=== PATIENT | female | born 1940 | race Caucasian/White ===

== ENCOUNTER 2019-06-24 12:53 | Emergency (ER) | payer MEDICARE, OTHER ==
[2019-06-24 13:05] VITALS: BP 149/93
--- NOTE | 2019-06-24 13:14 | UC ---
Hand/Wrist HPI - HPI Summary HPI Summary: 78 yo female presents with RIGHT wrist pain. She tells me that for the last 3-4 days she has noticed a small bump to her right wrist. Last night noticed pain and some swelling to the area. Today she woke up and the area was red and warm with increased pain. She has been taking 400mg ibuprofen with mild relief of pain. Denies injury or wound to the area. No pets at home. No hx of MRSA, DM, or IVDA. Denies fever, chills, numbness, tingling. - History Of Current Complaint Chief Complaint: UCUpperExtremity Stated Complaint: WRIST PAIN Time Seen by Provider: 06/24/19 13:08 Hx Obtained From: Patient Onset/Duration: Gradual Onset Severity Initially: Mild Severity Currently: Moderate Pain Intensity: 6 Pain Scale Used: 0-10 Numeric - Allergies/Home Medications Allergies/Adverse Reactions: Allergies Allergy/AdvReac Type Severity Reaction Status Date / Time Sulfa (Sulfonamide Allergy Hives Verified 06/24/19 13:06 Antibiotics) Home Medications: Home Medications Ibuprofen TAB* [Motrin TAB* 400 MG] 1 tab PO TID 06/24/19 [History Confirmed ] PMH/Surg Hx/FS Hx/Imm Hx - Additional Past Medical History Additional PMH: None - Surgical History Surgical History: Yes Surgery Procedure, Year, and Place: [place], 2012, [facility] [place] [facility] [place] Family History Known Family History: Positive: Hypertension - Social History Occupation: Retired Lives: With Family Alcohol Use: None Substance Use Type: None Smoking Status (MU): Heavy Every Day Tobacco Smoker Type: Cigarettes Amount Used/How Often: PACK A DAY Length of Time of Smoking/Using Tobacco: 53 YEARS Have You Smoked in the Last Year: Yes Review of Systems All Other Systems Reviewed And Are Negative: No Constitutional: Positive: Negative Skin: Positive: Other - Right wrist swelling and redness Respiratory: Positive: Negative Cardiovascular: Positive: Negative Neurovascular: Positive: Negative Musculoskeletal: Positive: Other: - Right wrist pain Neurological: Positive: Negative Psychological: Positive: Negative Physical Exam - Summary Physical Exam Summary: GENERAL: NAD. WDWN. No pain distress. SKIN: See MSK CHEST: No accessory muscle use. Breathing comfortably and in no distress. CV: Pulses intact radial and ulnar. Cap refill <2seconds MSK: RIGHT WRIST: Mild edema about dorsal aspect near radial styloid with ~7mm firm fluctuance underlying the skin just distal to the styloid. There is mild surrounding warmth and erythema. She has mild decreased ROM with flexion due to pain. Business Support Assistant strength intact. No volar edema or erythema. No puncture wounds or abrasions. FROM all digits MCPs, PIPs, and DIPs. NEURO: Alert. Sensations intact hand and all fingers. PSYCH: Age appropriate behavior. Triage Information Reviewed: Yes Vital Signs: Initial Vital Signs Temp 97.3 F 06/24/19 13:03 Pulse 97 06/24/19 13:03 Resp 12 06/24/19 13:03 BP 149/93 06/24/19 13:03 Pulse Ox 99 06/24/19 13:03 Vital Signs Reviewed: Yes Diagnostics - Radiology Wrist XR Radiology Interpretation Completed By: ED Physician Summary of Radiographic Findings: NAD - reviewed with Dr. Lancaster Hand/Wrist Course/Dx - Course Course Of Treatment: Wrist XR wet read negative. Reviewed with Dr. Lancaster. Suspect cellulitis with ?underlying abscess formation. She is afebrile and has good ROM of her wrist without systemic infectious signs/ symptoms. Will place her on keflex and have her f/u with Orthopedics tomorrow for a recheck - Differential Dx/Diagnosis Provider Diagnosis: Cellulitis Discharge ED - Sign-Out/Discharge Documenting (check all that apply): Patient Departure All imaging exams completed and their final reports reviewed: No - Discharge Plan Condition: Stable Disposition: HOME Prescriptions: Cephalexin CAP* [Keflex CAP*] 500 mg PO QID 7 Days #28 cap Patient Education Materials: Cellulitis (ED) Referrals: Bianca Hurst MD [Primary Care Provider] - Jovanny Kellogg MD [Medical Doctor] - 1 Day Additional Instructions: If you develop a fever, shortness of breath, chest pain, new or worsening symptoms - please call your PCP or go to the ED immediately. Your blood pressure was high at todays visit. Please see your primary provider within 4 weeks for recheck and re-evaluation. Rest, ice, and elevate your wrist to decrease redness and swelling Take the antibiotic as prescribed. I strongly recommend that you call Orthopedics in the morning to schedule an appointment for tomorr or Tuesday for a recheck. If they cannot see you tomorrow or Tuesday - please return to the urgent care for a recheck. If you develop a fever, increased pain, decrease range of motion of wrist, or redness extending beyond the purple marking - please go to the ER immediately - Billing Disposition and Condition Condition: STABLE Disposition: Home
--- NOTE | 2019-06-25 08:40 | UC ---
- Progress Note Progress Note: Final x-ray report reviewed. IMPRESSION: NO FRACTURE OF THE WRIST IS NOTED. DEGENERATIVE CHANGES BETWEEN THE SCAPHOID AND TRAPEZIUM WELL THE FIRST CARPAL METACARPAL JOINT. Reading of no fx consistent with provider reading. No change in plan of care. Course/Dx - Diagnoses Provider Diagnoses: Cellulitis Discharge ED - Sign-Out/Discharge Documenting (check all that apply): Patient Departure All imaging exams completed and their final reports reviewed: Yes - Discharge Plan Condition: Stable Disposition: HOME Prescriptions: Cephalexin CAP* [Keflex CAP*] 500 mg PO QID 7 Days #28 cap Patient Education Materials: Cellulitis (ED) Referrals: Jovanny Kellogg MD [Medical Doctor] - 1 Day Bianca Hurst MD [Primary Care Provider] - Additional Instructions: If you develop a fever, shortness of breath, chest pain, new or worsening symptoms - please call your PCP or go to the ED immediately. Your blood pressure was high at todays visit. Please see your primary provider within 4 weeks for recheck and re-evaluation. Rest, ice, and elevate your wrist to decrease redness and swelling Take the antibiotic as prescribed. I strongly recommend that you call Orthopedics in the morning to schedule an appointment for tomorrow or Tuesday for a recheck. If they cannot see you tomorrow or Tuesday - please return to the urgent care for a recheck. If you develop a fever, increased pain, decrease range of motion of wrist, or redness extending beyond the purple marking - please go to the ER immediately - Billing Disposition and Condition Condition: STABLE Disposition: Home
== END 2019-06-24 13:57 | disposition home or self-care (01) ==
LOC: UCEAST 12:53
DX: L03.113 Cellulitis of right upper limb (principal); Z88.2 Allergy status to sulfonamides; F17.210 Nicotine dependence, cigarettes, uncomplicated
CPT/HCPCS: 99202; G0463